=== PATIENT | female | born 1990 | race Caucasian/White ===

== ENCOUNTER 2018-08-28 07:08 | Emergency (ER) | payer BC ==
[~2018-08-28] VITALS: Ht 167.6 cm; Wt 70.0 kg
[~2018-08-28 07:08] MED LIST: CEPHALEXIN500 MG PO; CIPROFLOXACN500 MG PO; FERRALET PO; PRENATAL3 PO; PYRIDIUM200 MG PO; TRI NESSA; TRINESSA PO
[2018-08-28 07:51] LABS: HEMATOCRIT 31.4 % (37.0-47.0); HEMOGLOBIN 10.7 g/dl (12.0-16.0); IMMATURE GRANULOCYTES 0.2 % (0.0-5.0); MEAN CELL VOLUME 102.3 fL CALC (80.0-100.0); MEAN CORPUSCULAR HGB 34.9 pG CALC (26.0-32.0); MEAN CORPUSCULAR HGB CONC 34.1 g/L CALC (32.0-36.0); NEUT# 4.21 thou/uL (2.00-7.15); RED BLOOD COUNT 3.07 mill/uL (4.20-5.60)
[2018-08-28 08:03] LABS: ALBUMIN 4.5 g/dL (3.2-5.0); ALKALINE PHOSPHATASE 52 u/l (38-126); ANION GAP 16 (6-22 (CALC)); BILIRUBIN, TOTAL 0.5 mg/dL (0.0-1.4); BUN 16 mg/dL (7-17); BUN/CREATININE RATIO 27 (12-20 (CALC)); C-REACTIVE PROTEIN 2.2 mg/dL (0-0.9); CARBON DIOXIDE 24 mmol/l (22-30); CHLORIDE 105 mmol/l (95-108); CREATININE 0.6 mg/dL (0.5-1.0); GFR > 60 ML/MIN (>=60 (CALC)); GFR FOR AFR.AMER. > 60 ML/MIN (>=60 (CALC)); SGOT/AST 12 u/l (14-36); SODIUM 141 mmol/l (137-146); TOTAL PROTEIN 7.3 g/dL (6.3-8.2)
[2018-08-28 08:10] LABS: URINE BILIRUBIN - DIPSTICK NEGATIVE (NEGATIVE); URINE BLOOD DIPSTICK NEGATIVE (NEGATIVE); URINE COLOR YELLOW; URINE GLUCOSE - DIPSTICK NEGATIVE (NEGATIVE); URINE KETONE NEGATIVE (NEGATIVE); URINE LEUK ESTERASE NEGATIVE (NEGATIVE); URINE NITRITE - DIPSTICK NEGATIVE (Negative); URINE PROTEIN - DIPSTICK NEGATIVE (NEG-TRACE); URINE UROBILINOGEN - DIPSTICK 0.2 E.U./dL (0.2)
[2018-08-28] MEDS ORDERED: TORADOL PO (09:33)
[2018-08-28] MEDS ORDERED: ZITHROMAX250 MG PO (09:33)
[2018-08-28] MEDS ORDERED: DELTASONE20 MG PO (09:33)
[2018-08-28] MEDS ORDERED: TESSALON PER100 MG PO (09:33)
[2018-08-28 09:40] VITALS: BP 112/62
== END 2018-08-28 09:49 | disposition home or self-care (01) | DRG 153 ==
LOC: ED 07:08
PROVIDERS: Emergency Medicine
DX: J06.9 Acute upper respiratory infection, unspecified (principal); G89.18 Other acute postprocedural pain; K08.89 Other specified disorders of teeth and supporting structures; J32.0 Chronic maxillary sinusitis; J32.3 Chronic sphenoidal sinusitis